=== PATIENT | male | born 1940 | race Caucasian/White ===

== ENCOUNTER 2020-01-20 09:22 | Inpatient (IN) | payer MEDICARE ==
[~2020-01-20] VITALS: Ht 175.3 cm; Wt 66.8 kg
--- NOTE | 2020-01-20 09:22 | NUR ---
PT TO ROOM VIA EMS STRETCHER FOR BEDSIDE TRIAGE
--- NOTE | 2020-01-20 09:40 | NUR ---
WOFE AT BEDSIDE INFO OBTAINED FROM HER PT HAS HISTROY OF DEMENTIA, MOIST COUGH NOTED, PRODUCTIVE OF THIN WHITE SPUTUM, AWARE OF PLAN TO STAY FOR OBSERVATION, NO NEW COMPLAINTS OPFFERED, PT AWARE OF NEED FOR URINE SPECIMEN
[2020-01-20 09:54] LABS: HEMATOCRIT 33.4 % (39.0-50.0); HEMOGLOBIN 10.9 g/dl (14.0-18.0); IMMATURE GRANULOCYTES 0.4 % (0.0-5.0); MEAN CELL VOLUME 91.5 fL CALC (80.0-100.0); MEAN CORPUSCULAR HGB 29.9 pG CALC (26.0-32.0); MEAN CORPUSCULAR HGB CONC 32.6 g/dL CAL (32.0-36.0); NEUT# 9.48 thou/uL (1.82-7.42); RED BLOOD COUNT 3.65 mill/uL (4.70-6.10); RED CELL DISTRI WIDTH 13.2 % (11.5-15.5)
[2020-01-20] MEDS ORDERED: TRELEGY ELLIPTA1 AER IN (10:18)
[2020-01-20] MEDS ORDERED: XARELTO20 MG PO (10:19)
[2020-01-20] MEDS ORDERED: VERAPAMIL120 M1 PO (10:20)
[2020-01-20] MEDS ORDERED: MONTELUKAST SOD10 MG PO (10:21)
[2020-01-20] MEDS ORDERED: FERR SULFATE325 MG PO (10:21)
[2020-01-20] MEDS ORDERED: MULTI VIT PO (10:21)
[2020-01-20 10:22] LABS: ALBUMIN 3.7 g/dL (3.2-5.0); ALKALINE PHOSPHATASE 74 u/l (38-126); ANION GAP 12 (6-22 (CALC)); BILIRUBIN, TOTAL 0.6 mg/dL (0.0-1.4); BUN 14 mg/dL (8-23); BUN/CREATININE RATIO 16 (12-20 (CALC)); CARBON DIOXIDE 23 mmol/l (22-30); CHLORIDE 98 mmol/l (95-108); CREATININE 0.8 mg/dL (0.7-1.3); GFR > 60 ML/MIN (>=60 (CALC)); GFR FOR AFR.AMER. > 60 ML/MIN (>=60 (CALC)); LIPASE 80 u/l (23-300); MAGNESIUM 1.8 mg/dL (1.6-2.3); SGOT/AST 33 u/l (19-48); SODIUM 129 mmol/l (137-146)
[2020-01-20] MEDS ORDERED: CALCIUM + D PO (10:22)
[2020-01-20] MEDS ORDERED: VALSARTAN160 MG PO (10:23)
[2020-01-20] MEDS ORDERED: MULTAQ400 MG PO (10:23)
[2020-01-20] MEDS ORDERED: ARAVA20 MG PO (10:24)
[2020-01-20 10:25] LABS: INTERNATIONAL NORMALIZED RATIO 1.2 RATIO (0.7-1.3); PROTHROMBIN TIME 12.2 SECONDS (9.0-12.5)
[2020-01-20] MEDS ORDERED: ALBUTEROL108 MCG/AC IN (10:25)
[2020-01-20] MEDS ORDERED: VENTOLIN H108 MCG/AC IN (10:26)
--- NOTE | 2020-01-20 10:29 | NUR ---
PT UNABLE TO VOID PRIOR TO GOING TO CT WILL ST CATH UPONE RETURN NOTIFIED
--- NOTE | 2020-01-20 11:00 | NUR ---
RECIEVED CARE OF PATIENT. PT RESTING ON STRETCHER. AT BEDSIDE. ORIENTED TO SELF. REPORTS PT FEBRILE AND WEAK THIS MORNING. PATENT IV IN PLACE
[2020-01-20 11:22] LABS: URINE BILIRUBIN - DIPSTICK NEGATIVE (NEGATIVE); URINE BLOOD DIPSTICK NEGATIVE (NEGATIVE); URINE COLOR YELLOW; URINE GLUCOSE - DIPSTICK NEGATIVE (NEGATIVE); URINE KETONE NEGATIVE (NEGATIVE); URINE NITRITE - DIPSTICK NEGATIVE (Negative); URINE PROTEIN - DIPSTICK NEGATIVE (NEG-TRACE); URINE SPECIFIC GRAVITY 1.015; URINE UROBILINOGEN - DIPSTICK 0.2 E.U./dL (0.2)
[2020-01-20 11:24] LABS: URINE LEUK ESTERASE LARGE (NEGATIVE)
[2020-01-20 11:35] LABS: URINE BACTERIA FEW hpf; URINE WBC 20-50 WBC/hpf (0-5)
--- NOTE | 2020-01-20 12:00 | NUR ---
PT AWAITING ADMISSION. ANTIBIOTICS INFUSING
--- NOTE | 2020-01-20 12:34 | NUR ---
MED SURG UNABLE TO TAKE REPORT AT THIS TIME
--- NOTE | 2020-01-20 13:04 | NUR ---
REPORT GIVEN TO MATHEW MCKEONSALES FLOOR ASSOCIATE
--- NOTE | 2020-01-20 13:13 | NUR ---
REPORT RECIEVED FROM LINDA COREAS. PT ARRIVED PT [facility] ROOM 271 VIA STRETCHER ACCOMPAINED BY LINDA COREAS AND . PT TRANSFERED FROM STRETCHER TO BED WITH LITTLE DIFFICULTY. INTRODUCED SELF TO PT AND DISCUSSED POC. ASSESSMENT AND VITALS COMPLETED AT THIS TIME. RESPIRATIONS ARE EVEN AND UNLABORED. LUNG SOUNDS ARE CLEAR. HEART RHYTHM IS NORMAL WITH TELE IN PLACE. RADIAL AND PEDAL PULSES ARE STRONG WITH NORMAL CAPILLARY REFILL. EMS #20G IN LFA FINISHING WITH VANCO AT 125ML ORDERED. SITE APPEARS HEALTHY AND PATENT. NS TO BE STARTED ONCE VANCO FINISHED. SKIN IS WARM/ DRY WITH NO BREAKDOWN OR REDNESS.PT IS A/O BUT NEED REORIENTING AT TIMES. IS GOOD HISTORIAN. INFORMED WRITTER THAT" HE IS A FALL RISK AND TRYING TO GET OUT OF BED AT NIGHT". FALL RISK/ALLERGY BAND APPLIED AND BED ALARM ACTIVATED WITH AT BEDSIDE.PT PRESENTS WITH PAIN PUMP ON LEFT FLANK AREA, STATES "ITS NOT CHARGED RIGHT NOW BECAUSE I DONT HAVE THE OB TECH. IT HASNT BEEN WORKING SINCE JULY." PT DENIES ANY PAIN OR DISCOMFORTS AT THIS TIME. PT ORIENTED TO ROOM AND CALL LIGHT SYSTEM. ALL SAFTEY PRECAUTIONS ARE IN PLACE WITH CALL LIGHT IN REACH. WILL CONTINUE TO MONITOR.
--- NOTE | 2020-01-20 13:15 | NUR ---
PT TRANSPORTED VIA STRETCHER TELE IN PLACE TO [facility]
--- NOTE | 2020-01-20 13:40 | NUR ---
KARL INFORMED OF HOME MEDICATIONS; TRELLEGY AND MULTAQ THAT NEEDED TO BE BROUGHT INTO HOSPITAL. VERBALIZED UNDERSTANDING. STATED "I WILL HAVE THEM IN THE MORNING".
[2020-01-20 13:41] VITALS: BP 131/60
[2020-01-20 15:25] VITALS: BP 134/66
--- NOTE | 2020-01-20 16:00 | NUR ---
PT SLEEPING IN LOW FOWLERS POSTIION WITH AT BEDSIDE. RESPIRATIONS ARE EVEN AND UNLABORED WITH NO SIGNS OF DISTRESS NOTED. IV FLUIDS RUNNING AT 100 ML PER ORDER. ALL SAFETY PRECAUTIONS RE-ENFORCED WITH CALL LIGHT AND BED ALARM ACTIVATED. WILL CONTINUE TO MONITOR
[2020-01-20 19:00] VITALS: BP 142/77
--- NOTE | 2020-01-20 19:00 | NUR ---
REPORT RECEIVED FROM JOSE CARMONA. PT RESTING IN BED, NO S/S OF DISTRESS AT THIS TIME. WILL CONTINUE TO MONITOR.
--- NOTE | 2020-01-20 21:10 | NUR ---
PT RESTING IN BED, WITH EYES CLOSED. RESPIRATIONS EVEN AND UNLABORED ON RA. LUNGS SOUND COARSE/DIMINISHED. PEDAL PULSES ARE WEAK. SAFETY PRECAUTIONS IN PLACE. WILL CONTINUE TO MONITOR.
--- NOTE | 2020-01-20 21:12 | NUR ---
PT FAMILY CALLED TO SEE IF THEY COULD BRING IN PT PM MEDICATION. FAMILY AGREED TO BRING IN MEDICATION
[2020-01-21] VITALS (7 sets, daily range): BP systolic 116–149; BP diastolic 59–74
--- NOTE | 2020-01-21 00:11 | NUR ---
PT RESTING IN BED, NO S/S OF DISTRESS AT THIS TIME. SAFETY PRECAUTIONS IN PLACE. WILL CONTINUE TO MONITOR.
--- NOTE | 2020-01-21 04:06 | NUR ---
PT RESTING IN BED, NO S/S OF DISTRESS AT THIS TIME. SAFETY PRECAUTIONS IN PLACE. WILL CONTINUE TO MONITOR.
[2020-01-21 05:29] LABS: HEMATOCRIT 30.5 % (39.0-50.0); HEMOGLOBIN 9.7 g/dl (14.0-18.0); IMMATURE GRANULOCYTES 0.7 % (0.0-5.0); MEAN CELL VOLUME 93.6 fL CALC (80.0-100.0); MEAN CORPUSCULAR HGB 29.8 pG CALC (26.0-32.0); MEAN CORPUSCULAR HGB CONC 31.8 g/dL CAL (32.0-36.0); NEUT# 7.68 thou/uL (1.82-7.42); RED BLOOD COUNT 3.26 mill/uL (4.70-6.10); RED CELL DISTRI WIDTH 13.4 % (11.5-15.5)
[2020-01-21 05:51] LABS: ALBUMIN 3.1 g/dL (3.2-5.0); ALKALINE PHOSPHATASE 68 u/l (38-126); ANION GAP 12 (6-22 (CALC)); BUN 12 mg/dL (8-23); BUN/CREATININE RATIO 18 (12-20 (CALC)); CARBON DIOXIDE 23 mmol/l (22-30); CHLORIDE 100 mmol/l (95-108); CREATININE 0.7 mg/dL (0.7-1.3); GFR > 60 ML/MIN (>=60 (CALC)); GFR FOR AFR.AMER. > 60 ML/MIN (>=60 (CALC)); POTASSIUM 4.2 mmol/l (3.5-5.1); SGOT/AST 22 u/l (19-48); SODIUM 131 mmol/l (137-146); TOTAL PROTEIN 5.8 g/dL (6.3-8.2)
[2020-01-21 05:54] LABS: BILIRUBIN, TOTAL 0.3 mg/dL (0.0-1.4)
--- NOTE | 2020-01-21 09:30 | NUR ---
PT SEEN AWAKE, ALERT, ORIENTED TO SELF. LUNGS CLEAR, RA. IS AT BEDSIDE. PT ABLE TO ANSWER QUESTIONS, ANSWERS NOT RELIABLE PER DEMENTIA. LUNGS CLEAR, RA. PT INCONTINENT OF URINE. PT SEEN BY DR MÉNDEZ THIS MORNING, WILL CONTINUE IN HOSPITAL FOR IV ABX PER UTI.
--- NOTE | 2020-01-21 11:09 | NUR ---
PT AT BEDSIDE.
--- NOTE | 2020-01-21 14:41 | NUR ---
ROCEPHIN INFUSING AT THIS TIME; IV SITE APPEARS HEALTHY. REMAINS AT BEDSIDE. PT DENIES PAIN CURRENTLY. RESPIRATIONS EVEN AND UNLABORED ON ROOM AIR. NO REQUESTS OR CONCERNS. CALL LIGHT WITHIN REACH.
--- NOTE | 2020-01-21 17:10 | NUR ---
TYLENOL GIVEN FOR HEADACHE. COOL CLOTH APPLIED TO FOREHEAD.
--- NOTE | 2020-01-21 18:26 | NUR ---
ALARM SOUNDED AND PT WITH LEGS OUT OF THE BED ATTEMPTING TO GET UP TO VOID; TRYING TO HELP HIM. ASSISTED WITH URINAL; INCONTINENT OF SOME DUE TO URGENCY. REPOSITIONED UP IN BED. BED ALARM ON AGAIN. NO OTHER NEEDS. REPORTS THAT TYLENOL WAS EFFECTIVE FOR HEADACHE.
--- NOTE | 2020-01-21 20:17 | NUR ---
PT LAYING IN BED. A&O TO SELF AND PLACE. ORIENTED PT TO CURRENT MONTH. PT DENIES ANY PAIN AT THIS TIME. BED SET IN LOWEST POSITION WITH BED ALARM IN PLACE FOR SAFETY PRECAUTIONS. NO OTHER NEEDS AT THIS TIME. ASSESSMENT COMPLETED. DISCUSSED POC. CALL LIGHT IN REACH. CONTINUE TO MONITOR.
--- NOTE | 2020-01-21 23:40 | NUR ---
PT IN BED WATCHING TV. NO DISTRESS OR NEEDS AT THIS TIME. CALL LIGHT IN REACH. CONTINUE TO MONITOR.
[2020-01-22 04:05] VITALS: BP 137/86
--- NOTE | 2020-01-22 04:30 | NUR ---
PT LAYING IN BED. NO NEEDS AT THIS TIME. NEW IV INITIATED, #20 RFA WITH 0.45% NS AT 100 ML/HR. CALL LIGHT IN REACH. CONTINUE TO MONITOR.
[2020-01-22 05:47] LABS: HEMOGLOBIN 9.7 g/dl (14.0-18.0); MEAN CELL VOLUME 92.9 fL CALC (80.0-100.0); MEAN CORPUSCULAR HGB CONC 32.3 g/dL CAL (32.0-36.0); RED BLOOD COUNT 3.23 mill/uL (4.70-6.10); RED CELL DISTRI WIDTH 13.5 % (11.5-15.5)
[2020-01-22 06:07] LABS: ANION GAP 10 (6-22 (CALC)); BUN 11 mg/dL (8-23); BUN/CREATININE RATIO 15 (12-20 (CALC)); CARBON DIOXIDE 25 mmol/l (22-30); CHLORIDE 100 mmol/l (95-108); CREATININE 0.7 mg/dL (0.7-1.3); GFR > 60 ML/MIN (>=60 (CALC)); GFR FOR AFR.AMER. > 60 ML/MIN (>=60 (CALC)); MAGNESIUM 1.8 mg/dL (1.6-2.3); POTASSIUM 3.8 mmol/l (3.5-5.1); SODIUM 131 mmol/l (137-146)
[2020-01-22 07:15] VITALS: BP 141/68
--- NOTE | 2020-01-22 07:16 | NUR ---
REPORT RECEIVED FROM LINDA ESCAMILLA. PT RESTING IN BED SEMI FOWLERS; ALERT AND ORIENTED X [address]; PT ABLE TO TELL HE IS IN THE HOSPITAL BUT UNABLE TO SAY WHICH HOSPITAL; REPORTS YEAR AT 2000. DENIES PAIN. RESPIRATIONS EVEN AND UNLABORED ON ROOM AIR. IV FLUIDS INFUSING WITHOUT DIFFICULTY; IV SITE APPEARS HEATLHY. TELE ON. LUNGS ARE CLEAR; LOOSE NON PRODUCTIVE COUGH. SAFETY MEASURES IN PLACE INCLUDING BED ALARM. CALL LIGHT WITHIN REACH.
--- NOTE | 2020-01-22 08:00 | NUR ---
DR. MÉNDEZ AT BEDSIDE.
--- NOTE | 2020-01-22 09:25 | NUR ---
CALLED DR. KAUR AT [phone] SPOKE TO GARDENIA GAVE INFORMATION REGARDING THIS PT. STATED SHE WILL LET HIM KNOW ABOUT THE CONSULTATION.
--- NOTE | 2020-01-22 09:33 | NUR ---
FIRST DOSE OF VANCO INFUSING NOW; AT BEDSIDE.
--- NOTE | 2020-01-22 09:34 | NUR ---
DID CONSULTATION ON THE TELE PAD FOR DR. DAHL.
[2020-01-22 10:30] VITALS: BP 105/61
--- NOTE | 2020-01-22 11:29 | NUR ---
UP TO BATHROOM FOR BOWEL MOVEMENT; BOWEL INCONTINENCE ON THE WAY TO THE BATHROOM. HYGIENE PROVIDED.
--- NOTE | 2020-01-22 11:43 | NUR ---
DR. DAHL AT VIRTUAL BEDSIDE FOR ID CONSULT.
--- NOTE | 2020-01-22 13:53 | NUR ---
S: JOE ACUÑA is a 79 M who presents with urinary tract infection (UTI). He has a history of hypertension and COPD. All medications in patient's chart were reviewed. O: VS: BP 105/61 mmHg, P 75 bpm, RR 18 breaths/minute, T 97.7 F W 66.791 kg, HT 175.26 cm, Scr= 1 mg/dL, CrCl= 54.7 ml/min A: Blood culture shows no growth. Urine culture shows Enterococcus Faecalis sensitive to vancomycin. P: Vancomycin ordered for pharmacy to dose. Start Vancomycin 750 mg IV Q12H. Vancomycin trough is drawn before the 4th dose on 01/23/20202029. Vancomycin goal trough is between 10-20 mcg/ml. Pharmacy will follow and or advise on antibiotics use as needed.
--- NOTE | 2020-01-22 14:15 | NUR ---
PT AT BEDSIDE.
--- NOTE | 2020-01-22 14:40 | NUR ---
DR. KAUR AT BEDSIDE FOR EVAL. VERBAL ORDER TO OBTAIN PVR WITH BLADDER SCANNER AND NOTIFY HIM OF RETENTION GREATER THAN 300 ML.
[2020-01-22 15:00] VITALS: BP 105/66
--- NOTE | 2020-01-22 15:17 | NUR ---
Pt. found resting in bed, his spouse was in room and was able to wake him up. Pt. able to state his name and when questioned. He is in agreement to participate in physical therapy. Supine to side ly with min. assist x 1 to initiate turning onto side. Pt. then able to use railing to come to sitting and sat at EOB without LOB. Sit to stand to walker with min. assist x 1. Pt. ambulated 2 x 30 feet using walker with CGA x 1. V.c.'s and demonstration provided for how to use walker, how to negotiate around bed, normal gait pattern and breathing technique. Upon returning to bedside pt. able to perform sitting lateral scooting and with mod. assist x 1 pt. able to ly on his back. Max assist x 2 required for positioning higher in bed. HOB elevated and call light left within reach. Pt. was left resting comfortably in bed with spouse present and physician. Pt. without questions/concerns. AMPAC score 11. Attending nurse informed of patient participation in physical therapy.
--- NOTE | 2020-01-22 15:20 | NUR ---
PVR 455 ML WITH BLADDER SCANNER. NOTIFIED. NEW ORDER FOR DANIELS CATHETER PLACEMENT; DC PT WITH DANIELS AND DR. KAUR STATES HE WILL REMOVE IN OFFICE. PATIENT AND UPDATED.
--- NOTE | 2020-01-22 15:40 | NUR ---
16F DANIELS PLACED; PT TOLERATED WELL. IMMEDIATE RETURN OF CLEAR, PALE YELLOW URINE.
--- NOTE | 2020-01-22 18:39 | NUR ---
RESTING IN BED SEMI FOWLERS WITH EYES CLOSED AND NO SIGNS OF DISTRESS. DANIELS DRIANING CLEAR YELLOW URINE IN ADEQUATE AMOUNTS. CALL LIGHT WTIHIN REACH.
[2020-01-22 19:05] VITALS: BP 134/76
--- NOTE | 2020-01-22 19:22 | NUR ---
PT LAYING IN BED. A& TO SELF AND PLACE. REORIENTED PT TO CURRENT DATE/YEAR. PT DENIES ANY PAIN AT THIS TIME. MOIST COUGH HEARD ALONG WITH COARSE BREATH SOUNDS UPON AUSCULTATION. DANIELS CATHETER IN PLACE DRAINING VIA GRAVITY WITH CLEAR YELLOW URINE NOTED. ASSESSMENT COMPLETED. DISCUSSED POC. BED ALARM IN PLACE FOR SAFETY PRECAUTIONS. CALL LIGHT IN REACH. CONTINUE TO MONITOR.
--- NOTE | 2020-01-22 22:50 | NUR ---
UPON ENTERING ROOM, PT REMOVED IV AND ATTEMPTED TO REMOVE ID BRACELETS. REORIENTED PT. WILL REINSERT NEW IV.
--- NOTE | 2020-01-22 23:15 | NUR ---
NEW IV #22 INITIATED BY BABAK MCKEON
[2020-01-22 23:41] VITALS: BP 128/68
[2020-01-23 03:57] VITALS: BP 124/74
--- NOTE | 2020-01-23 04:02 | NUR ---
PT SLEEPING IN BED. RESP EVEN AND UNLABORED. CONTINUE TO MONITOR
[2020-01-23 07:58] VITALS: BP 144/79
--- NOTE | 2020-01-23 07:58 | NUR ---
RECIEVED REPORT FROM WILDA RN. PT RESTING IN SEMI FOWLERS POSTIION EATING BREAKFAST WITH AT BEDSIDE UPON ENTERING ROOM. INTRODUCED SELF TO PT AND DISCUSSED POC. ASSESSMENT AND VITALS COMPLETED. RESPIRATIONS ARE EVEN AND UNLABORED WITH NO SIGNS OF DISTRESS. WHEEZING UPON AUSCULTATING, PT DENEIS ANY SOB. HEART RHYTHM IS NORMAL WITH TELE IN PLACE. BOWEL SOUNDS ARE ACTIVE IN ALL QUADRANTS,LAST REPORTED BM 01/22/20. RADIAL AND PEDAL PULSES ARE STRONG WITH NORMAL CAPILLARY REFILL. #22 IN RFA RUNNING WITH 0.45 NS PER ORDERED, SITE APPEARS HEALTHY AND PATENT. DANIELS CATHATER IN PLACE. 350ML OF CLEAR YELLOW URINE EMPTIED. PT PRESENTED WITH NON PRODUCTIVE COUGH STATING "TRACY HAD IT FOR YEARS." PT DENIES ANY PAIN OR DISCOMFORTS AT THIS TIME. ALL SAFETY PRECAUTIONS IN PLACE WITH CALL LIGTH AND BED ALARM ACTIVATED. WILL CONTINUE TO MONITOR.
[2020-01-23 10:30] VITALS: BP 102/61
--- NOTE | 2020-01-23 11:24 | NUR ---
PT SLEEPING IN SEMI FOWLERS POSITION UPON ENTERING ROOM. RESPIRATIONS ARE EVEN AND UNLABORED. NO DISTESS NOTED. ASSESSMENT REMIANS THE SAME. PT DENIES ANY PAIN OR DISCOMFORTS AT THIS TIME.IV FLUIDS RUNNING WITH EASE PER ORDER. ALL SAFTEY PRECAUTIONS ENFORCED WITH CALL LIGHT IN REACH AND BED ALARM ACTIVATED. AT BEDSIDE. WILL CONTINUE TO MONITOR
[2020-01-23 15:00] VITALS: BP 114/74
--- NOTE | 2020-01-23 15:49 | NUR ---
PT SLEEPING IN SEMI FOWLERS POSITION WITH AT BEDSIDE. RESPIRATIONS ARE EVEN AND UNLABROED WITH NO SIGNS OF DISTRESS NOTED. DANIELS CATHATER IN PLACE WITH TUBING UNKINKED AND FLOWING WITH GRAVITY. IV FLUIDS RUNNING PER ORDER. NO SIGNS OF ANY PAIN OR DISCOMFORTS. ALL SFATEY PRECAUTIONS ARE IN PLACE WITH CALL LIGHT IN REACH.WILL CONTINUE TO MONITOR
[2020-01-23 18:55] VITALS: BP 126/69
--- NOTE | 2020-01-23 19:30 | NUR ---
PT AWAKE RESTING IN BED. VSS. RESP EVEN AND UNLABORED. LUNGS CLEAR BILAT WITH DIMINISHED BREATH SOUNDS. ABD SOFT AND NONDISTENDED WITH BOWEL SOUNDS PRESENT. NO LOWER EXT EDEMA NOTED. PEDAL PULSES PALPATED BILAT. DANIELS IS PATENT DRAINING YELLOW URINE WITH SLIGHT SEDIMENT NOTED. IV SITE PATENT IN RT FOREARM. NSS AT 10CC/HR. TELE AFIB HR CONTROLLED. PT OFFERS NO COMPLAINTS. BED ALARM IS ON . FREQUENT ROUNDS MADE. CALL SABILLON WITHIN REACH.
[2020-01-24 00:01] VITALS: BP 123/77
[2020-01-24 03:40] VITALS: BP 129/77
--- NOTE | 2020-01-24 04:18 | NUR ---
PT RESTING IN BED WITH EYES CLOSED. RESP EVEN AND UNLABORED. ASSESSMENT UNCHANGED. IV SITE PATENT. TELE AFIB HR CONTROLLED. FRANCES IS PATENT. BED ALARM IS ON. FREQUENT ROUNDS MADE. CALL SABILLON WITHIN REACH.
[2020-01-24 05:58] LABS: HEMATOCRIT 31.7 % (39.0-50.0); IMMATURE GRANULOCYTES 0.3 % (0.0-5.0); MEAN CELL VOLUME 93.8 fL CALC (80.0-100.0); MEAN CORPUSCULAR HGB 29.6 pG CALC (26.0-32.0); MEAN CORPUSCULAR HGB CONC 31.5 g/dL CAL (32.0-36.0); NEUT# 3.54 thou/uL (1.82-7.42); RED BLOOD COUNT 3.38 mill/uL (4.70-6.10); RED CELL DISTRI WIDTH 13.7 % (11.5-15.5)
[2020-01-24 06:23] LABS: ANION GAP 11 (6-22 (CALC)); BUN 9 mg/dL (8-23); BUN/CREATININE RATIO 12 (12-20 (CALC)); CARBON DIOXIDE 27 mmol/l (22-30); CHLORIDE 99 mmol/l (95-108); CREATININE 0.7 mg/dL (0.7-1.3); GFR > 60 ML/MIN (>=60 (CALC)); GFR FOR AFR.AMER. > 60 ML/MIN (>=60 (CALC)); POTASSIUM 3.7 mmol/l (3.5-5.1); SODIUM 132 mmol/l (137-146)
[2020-01-24 08:05] VITALS: BP 117/69
--- NOTE | 2020-01-24 08:50 | NUR ---
ASSESSMENT DONE. PT IS RESTING IN BED WITH NO S/S OF DISTRESS NOTED. IN ROOM. PT DENIES PAIN AT THIS TIME. TELE IN PLACE. DANIELS IS PATENT WITH YELLOW URINE. PT IS A&O X2. PT DENIES ANY NEEDS AT THIS TIME. SAFETY PRECAUTIONS REINFORCED AND CALL LIGHT IN REACH.
[2020-01-24 10:59] VITALS: BP 112/67
--- NOTE | 2020-01-24 12:37 | NUR ---
PT IS RESTING IN ROOM WITH NO S/S OF DISTRESS NOTED. PT DENIES ANY NEEDS AT THIS TIME. IN ROOM. CALL LIGHT IN REACH.
[2020-01-24 15:15] VITALS: BP 112/74
--- NOTE | 2020-01-24 16:16 | NUR ---
PT IS RESTING IN BED WITH NO S/S OF DISTRESS NOTED. PRUNE JUICE PROVIDED. IN ROOM. PT DENIES ANY NEEDS AT THIS TIME. CALL LIGHT IN REACH.
[2020-01-24 19:00] VITALS: BP 123/71
--- NOTE | 2020-01-24 20:40 | NUR ---
PT BOOSTED IN BED. ASSESSMENT COMPLETED AT THIS TIME. PT DENIES ANY NEEDS. DANIELS DRAINING TO GRAVITY CLEAR YELLOW URINE. PT DENIES BURNING OR IRRITATION AT INSERTION SITE. SKIN APPEARS HEALTHY. CALL LIGHT AT SIDE.
[2020-01-25] VITALS: BP 117/71
--- NOTE | 2020-01-25 01:00 | NUR ---
PT AWAKE, REPORTS NOT BEING ABLE TO SLEEP. DENIES ANYTHING FOR COMFORT TO ASSIST. URINAL EMPTIED 200CC OF CLEAR YELLOW URINE.
--- NOTE | 2020-01-25 01:05 | NUR ---
PT AWAKE UPRIGHT IN BED. NO S/O DISTRESS NOTED. PT DENIES ANY NEEDS, BUT DID REQUEST A CUP OF COFFEE/PROVIDED AT THIS TIME AND I ENCOURAGED HIM TO CALL NEEDS ARISE.
--- NOTE | 2020-01-25 03:59 | NUR ---
PT WATCHING TV UPRIGHT IN BED. NO S/O DISTRESS NOTED. DENIES ANY NEEDS.
[2020-01-25 04:00] VITALS: BP 123/75
[2020-01-25 07:56] VITALS: BP 127/83
--- NOTE | 2020-01-25 10:23 | NUR ---
PT SEEN OOB IN CHAIR AT BEDSIDE, VISITING. PT WITH LUNGS CLEAR, RA. DANIELS CATHETER IN PLACE, DRAINS CLEAR YELLOW URINE. PT SHOWERED THIS AM. PT SEEN BY DR MÉNDEZ THIS AM, HOPEFUL FOR DISCHARGE TO HOME TODAY.
--- NOTE | 2020-01-25 10:32 | NUR ---
PATIENT IS SITTING ON RECLINER AND ASLEEP. PATIENT'S WOKE HIM UP AND HE AGREED TO DO EXERCISES WHEN ASKED. PATIENT PEFORMED KNEE RAISES, KNEE EXTENSION, KNEE FLEXION, HIP ABDUCTION, ANKLE PF-DF X 20 REPS X 1 SET ON EACH LE AND EXERCISES. PATIENT PERFORMED STS X 3, MIN-A AND VERBAL CUES ON PROPER AND SAFE SEQUENCING. SUPPORTED STATIC STANDING BALANCE AND TOLERANCE USING WALKER, VERBAL AND TACTILE CUES ON PROPER BODY POSTURE AND RADHA PATIENT HAS RETROPULSIVE POSTURE WHICH INCREASES RISK OF FALLING BACKWARD. PATIENT REQUIRED MIN-A/CGA TO MAINTAIN BALANCE IN MIDLINE AND TOLERATED ~3 MINS. PATIENT WAS ENCOURAGED BY PT TO PERFORM EXERCISES DAILY AND STAND EVERY 30 MINS TO 1 HOUR TO PREVENT PRESSURE SORES, FURTHER WEAKNESS AND MUSCLE TIGHTNESS AND TO PROMOTE/IMPROVE JOINT AND TRUNK STABILITY. AMPAC = 14
[2020-01-25 11:09] VITALS: BP 99/70
[2020-01-25] MEDS ORDERED: AMOXICILLIN500 M2 PO (12:27)
--- NOTE | 2020-01-25 14:23 | NUR ---
PT AND VERBALIZE UNDERSTANDING OF DC INSTRUCTIONS, PT TAKEN TO VEHICLE BY WHEELCHAIR. PT LEAVES [facility] IN STABLE CONDITION.
== END 2020-01-25 14:18 | disposition home health service (06) | DRG 690 ==
LOC: ED 09:22 → ED-I 11:20 → ED 11:49 → MS2 11:50
PROVIDERS: Family Medicine; Internal Medicine; Nurse Practitioner; ADMIT Internal Medicine; ATTEND Internal Medicine
PROC: 0T9B70Z Drainage of Bladder with Drainage Device, Via Natural or Artificial Opening (ICD-10-PCS; principal; 2020-01-22)
DX: N39.0 Urinary tract infection, site not specified (principal); I48.20 Chronic atrial fibrillation, unspecified; I10 Essential (primary) hypertension; J44.9 Chronic obstructive pulmonary disease, unspecified; I25.10 Atherosclerotic heart disease of native coronary artery without angina pectoris; F03.90 Unspecified dementia, unspecified severity, without behavioral disturbance, psychotic disturbance, mood disturbance, and anxiety; N40.1 Benign prostatic hyperplasia with lower urinary tract symptoms; N39.498 Other specified urinary incontinence; R39.15 Urgency of urination; R33.8 Other retention of urine; R35.0 Frequency of micturition; B95.2 Enterococcus as the cause of diseases classified elsewhere; Z91.81 History of falling; Z87.440 Personal history of urinary (tract) infections; Z87.891 Personal history of nicotine dependence; Z85.118 Personal history of other malignant neoplasm of bronchus and lung; Z90.2 Acquired absence of lung [part of]; Z96.82 Presence of neurostimulator; Z79.01 Long term (current) use of anticoagulants; Z20.828 Contact with and (suspected) exposure to other viral communicable diseases
CPT/HCPCS: G0378; J0692; J3370; Q3014

== ENCOUNTER 2020-07-07 14:05 | Emergency (ER) | payer MEDICARE ==
[~2020-07-07] VITALS: Ht 175.3 cm; Wt 65.9 kg
[~2020-07-07 14:05] MED LIST: ALBUTEROL108 MCG/AC IN; AMOXICILLIN500 M2 PO; ARAVA20 MG PO; CALCIUM + D PO; FERR SULFATE325 MG PO; MONTELUKAST SOD10 MG PO; MULTAQ400 MG PO; MULTI VIT PO; TRELEGY ELLIPTA1 AER IN; VALSARTAN160 MG PO; VENTOLIN H108 MCG/AC IN; VERAPAMIL120 M1 PO; XARELTO20 MG PO
[2020-07-07] MEDS ORDERED: TOPROL XL25 MG PO (14:42)
[2020-07-07 15:15] LABS: HEMATOCRIT 37.2 % (39.0-50.0); IMMATURE GRANULOCYTES 0.4 % (0.0-5.0); MEAN CELL VOLUME 91.4 fL CALC (80.0-100.0); MEAN CORPUSCULAR HGB 29.5 pG CALC (26.0-32.0); MEAN CORPUSCULAR HGB CONC 32.3 g/dL CAL (32.0-36.0); NEUT# 3.8 thou/uL (1.82-7.42); RED BLOOD COUNT 4.07 mill/uL (4.70-6.10); RED CELL DISTRI WIDTH 14.2 % (11.5-15.5)
[2020-07-07 15:31] LABS: ALKALINE PHOSPHATASE 92 u/l (38-126); ANION GAP 14 (6-22 (CALC)); BUN 16 mg/dL (8-23); BUN/CREATININE RATIO 19 (12-20 (CALC)); CARBON DIOXIDE 26 mmol/l (22-30); CHLORIDE 96 mmol/l (95-108); CREATININE 0.9 mg/dL (0.7-1.3); GFR > 60 ML/MIN (>=60 (CALC)); GFR FOR AFR.AMER. > 60 ML/MIN (>=60 (CALC)); POTASSIUM 3.8 mmol/l (3.5-5.1); SGOT/AST 28 u/l (19-48); SODIUM 132 mmol/l (137-146)
[2020-07-07 15:35] LABS: ALBUMIN 3.8 g/dL (3.2-5.0); BILIRUBIN, TOTAL 0.5 mg/dL (0.0-1.4); TOTAL PROTEIN 7.2 g/dL (6.3-8.2)
[2020-07-07 15:43] LABS: MYOGLOBIN 44 ng/mL (0 - 121)
[2020-07-07 16:18] LABS: URINE BILIRUBIN - DIPSTICK NEGATIVE (NEGATIVE); URINE BLOOD DIPSTICK TRACE-LYSED (NEGATIVE); URINE COLOR YELLOW; URINE GLUCOSE - DIPSTICK NEGATIVE (NEGATIVE); URINE KETONE NEGATIVE (NEGATIVE); URINE NITRITE - DIPSTICK NEGATIVE (Negative); URINE PROTEIN - DIPSTICK TRACE mg/dL (NEG-TRACE); URINE SPECIFIC GRAVITY 1.015; URINE UROBILINOGEN - DIPSTICK 0.2 E.U./dL (0.2)
[2020-07-07 16:23] LABS: URINE LEUK ESTERASE MODERATE (NEGATIVE)
[2020-07-07 16:34] LABS: URINE RBC 0-2 RBC/hpf (0-5)
[2020-07-07] MEDS ORDERED: KEFLEX500 M1 PO (16:44)
[2020-07-07 16:52] VITALS: BP 145/69
== END 2020-07-07 17:24 | disposition home or self-care (01) ==
LOC: ED 14:05
PROVIDERS: Emergency Medicine
DX: N39.0 Urinary tract infection, site not specified (principal); I10 Essential (primary) hypertension; J44.9 Chronic obstructive pulmonary disease, unspecified; I48.91 Unspecified atrial fibrillation; Z20.822 Contact with and (suspected) exposure to COVID-19

== ENCOUNTER 2020-09-21 20:02 | Observation (INO) | payer MEDICARE, MEDICAID ==
[~2020-09-21] VITALS: Ht 175.3 cm; Wt 58.0 kg
[~2020-09-21 20:02] MED LIST changes: +KEFLEX500 M1 PO; +TOPROL XL25 MG PO
--- NOTE | 2020-09-21 20:20 | NUR ---
IN ROOM WHEELCHAIR, STAND PIVOT ONLY, VERY WEAK
[2020-09-21 20:39] LABS: IMMATURE GRANULOCYTES 0.5 % (0.0-5.0); MEAN CELL VOLUME 91.3 fL CALC (80.0-100.0); MEAN CORPUSCULAR HGB 30.4 pG CALC (26.0-32.0); MEAN CORPUSCULAR HGB CONC 33.3 g/dL CAL (32.0-36.0); NEUT# 4.69 thou/uL (1.82-7.42); RED BLOOD COUNT 3.12 mill/uL (4.70-6.10); RED CELL DISTRI WIDTH 14.5 % (11.5-15.5)
[2020-09-21 20:45] LABS: HEMATOCRIT 28.5 % (39.0-50.0); HEMOGLOBIN 9.5 g/dl (14.0-18.0)
[2020-09-21 20:52] LABS: ALBUMIN 3.7 g/dL (3.2-5.0); BILIRUBIN, TOTAL 0.6 mg/dL (0.0-1.4); BUN 19 mg/dL (8-23); BUN/CREATININE RATIO 25 (12-20 (CALC)); CARBON DIOXIDE 24 mmol/l (22-30); CHLORIDE 92 mmol/l (95-108); CREATININE 0.8 mg/dL (0.7-1.3); GFR > 60 ML/MIN (>=60 (CALC)); GFR FOR AFR.AMER. > 60 ML/MIN (>=60 (CALC)); POTASSIUM 3.8 mmol/l (3.5-5.1); SGOT/AST 39 u/l (19-48)
[2020-09-21 20:54] LABS: ALKALINE PHOSPHATASE 149 u/l (38-126); ANION GAP 13 (6-22 (CALC)); SODIUM 125 mmol/l (137-146)
--- NOTE | 2020-09-21 21:47 | NUR ---
ASLEEP W/P/D SKIN OCC CONGESTED COUGH MATH PROFESSOR NO DYSPNEA CONTINUOUS AT BEDSIDE
--- NOTE | 2020-09-21 22:54 | NUR ---
NO COUGH NO CONGESTION SR NO ST T CHANGES NO ECTOPY.NO DYSPNEA OR SOB S/S
--- NOTE | 2020-09-21 23:23 | NUR ---
PT VOIDS 100CC YELLOW URINE AT REQUEST OF SPOUSE SPEC TO LAB
[2020-09-21 23:30] LABS: URINE BILIRUBIN - DIPSTICK NEGATIVE (NEGATIVE); URINE COLOR YELLOW; URINE GLUCOSE - DIPSTICK NEGATIVE (NEGATIVE); URINE KETONE NEGATIVE (NEGATIVE); URINE PROTEIN - DIPSTICK NEGATIVE (NEG-TRACE); URINE UROBILINOGEN - DIPSTICK 0.2 E.U./dL (0.2)
[2020-09-21 23:31] LABS: URINE LEUK ESTERASE MODERATE (NEGATIVE); URINE NITRITE - DIPSTICK POSITIVE (Negative)
[2020-09-21 23:36] LABS: URINE BLOOD DIPSTICK NEGATIVE (NEGATIVE); URINE EPITHELIAL CELLS MODERATE EPI/hpf (0-FEW); URINE WBC 50-100 WBC/hpf (0-5)
[2020-09-21 23:37] LABS: URINE BACTERIA MANY hpf
--- NOTE | 2020-09-22 00:40 | NUR ---
W/P/D SKIN SR NO CT T CHANGES NO ECTOPY OCC CONGESTED ASSISTANT LOAN PROCESSOR COUGH NO SOB/DYSPNEA
--- NOTE | 2020-09-22 01:20 | NUR ---
PHONE REPORT TO NURSE TONO
--- NOTE | 2020-09-22 01:25 | NUR ---
PT TRANSFERRED TO [facility] RM 270 IN STABLE CONDITION ASSISTED PT TO STAND WALK AND SIT PT TOLERATED WELL
[2020-09-22 01:26] VITALS: BP 150/82
--- NOTE | 2020-09-22 01:26 | NUR ---
PT ARRIVES TO UNIT AT 0126 VIA STRETCHER ACCOMPANIED BY SEN RN. ADMITTED TO ROOM 270.
[2020-09-22 04:00] VITALS: BP 148/80
--- NOTE | 2020-09-22 07:05 | NUR ---
PATIENT LAYING IN BED AT THIS TIME PATIENT ABLE TO TELL ME NAME AND PLACE BUT WAS CONFUSED ON MONTH. TIRE SORTER DONE AT THIS TIME. LUNG ANGEL CLEAR EXECPT LEFT LOWER LUNG FIELD SLIGHTLY DIMINISHED. PATIENT HAS REPORTED PAST HISTORY OF LEFT LOWER LUNGECTOMY. NO EVIDENCE OF UPPER OR LOWER LIMB SWELLING AT THIS TIME. PATIENT STATED WHEN ASKE IF HE HAS ANY PAIN HE STATED "NO". SIDERAILS ARE UP X 2 CALL LIGHT AND PERSONAL BELONGING ARE WITHIN REACH.
[2020-09-22 07:20] VITALS: BP 134/77
--- NOTE | 2020-09-22 07:24 | NUR ---
PT screen No needs are identified at this time
[2020-09-22 10:41] VITALS: BP 134/82
--- NOTE | 2020-09-22 11:36 | NUR ---
PATIENT RESTING IN BED AT THIS TIME. SIDERAILS ARE UP X2 CALL LIGHT IS WITHIN REACH.
--- NOTE | 2020-09-22 13:07 | NUR ---
S: JOE ACUÑA is a 79 M who presents with UTI. He has a history of coronary artery disease, lung cancer, atrial fibrillation, COPD, chronic anemia, and hypertension. All medications in patient's chart were reviewed. O: VS: BP 134/82 mmHg, P 82 bpm, RR 20 bpm,T 97 F W 58.003 kg, HT 69 in, Scr= 0.8 (1) mg/dl,CrCl= 47.5 ml/min A: Blood culture is pending. Urine culture is pending. P: Patient is on ceftriaxone 1 g IV Q24H. Vancomycin ordered for pharmacy to dose. Start Vancomycin 1 g IV Q24H. Vancomycin trough is drawn before the 4th dose on 09/25/20 @ 09:30. Vancomycin goal trough is between 10-15 mcg/ml. Pharmacy will follow and or advise on antibiotics use as needed.
[2020-09-22 14:35] VITALS: BP 133/73
--- NOTE | 2020-09-22 16:18 | NUR ---
PATIENT LAYING IN BED AT THIS TIME. PATIENT WATCHING TV DENIES ANY PAIN SIDERAILS ARE UP X 2 BED ALARM IS ENGAGED. CALL LIGHT AND PERSONAL ITEMS ARE WITHIN REACH.
--- NOTE | 2020-09-22 19:00 | NUR ---
REPORT RECEIVED FROM Marcelina BACK RN. CARE OF PT ASSUMED AT THIS TIME.
[2020-09-22 19:11] VITALS: BP 116/70
--- NOTE | 2020-09-22 20:58 | NUR ---
PHYSICAL ASSESMENT COMPLETE. SCHEDULED MEDICATIONS ADMINISTERED. PLAN OF CARE REVIEWED, PT VERBALIZES UNDERSTANDING. PT DENIES NEEDS AT THIS TIME. CALL SABILLON WITHIN REACH, AGREES TO CALL PRN. BED LOCKED IN LOW POSITION WITH BEDRAILS UP X2 AND BED ALARM ON.
[2020-09-23 00:08] VITALS: BP 131/72
--- NOTE | 2020-09-23 00:20 | NUR ---
PT LAYING IN BED WITH EYES CLOSED, NO APPARENT DISTRESS, RESPIRATIONS REGULAR AND UNLABORED. APPEARS TO BE SLEEPING COMFORTABLY. CALL SABILLON REMAINS WITHIN REACH.
[2020-09-23 04:05] VITALS: BP 137/78
--- NOTE | 2020-09-23 04:21 | NUR ---
VIJAY, SURFACER OPERATOR IN ROOM TO DRAW AM LABS.
[2020-09-23 06:39] LABS: HEMATOCRIT 29.5 % (39.0-50.0); HEMOGLOBIN 9.5 g/dl (14.0-18.0); MEAN CELL VOLUME 94.2 fL CALC (80.0-100.0); MEAN CORPUSCULAR HGB 30.4 pG CALC (26.0-32.0); MEAN CORPUSCULAR HGB CONC 32.2 g/dL CAL (32.0-36.0); RED BLOOD COUNT 3.13 mill/uL (4.70-6.10); RED CELL DISTRI WIDTH 14.6 % (11.5-15.5)
[2020-09-23 07:17] LABS: ANION GAP 12 (6-22 (CALC)); BUN 11 mg/dL (8-23); BUN/CREATININE RATIO 19 (12-20 (CALC)); CARBON DIOXIDE 24 mmol/l (22-30); CHLORIDE 97 mmol/l (95-108); CREATININE 0.6 mg/dL (0.7-1.3); GFR > 60 ML/MIN (>=60 (CALC)); GFR FOR AFR.AMER. > 60 ML/MIN (>=60 (CALC)); MAGNESIUM 1.6 mg/dL (1.6-2.3); POTASSIUM 3.5 mmol/l (3.5-5.1); SODIUM 130 mmol/l (137-146)
[2020-09-23 07:21] VITALS: BP 155/90
[2020-09-23] MEDS ORDERED: CEFDINIR300 MG PO (09:16)
--- NOTE | 2020-09-23 10:36 | NUR ---
PT SEEN AT REST IN THE BED, APPEARS WITHDRAWN, LUNGS CLEAR, RA. PT SEEN BY DR DOE THIS MORNING, WILL DISCHARGE LATER TODAY. CALLED EARLIER FOR AN UPDATE, BUT UNABLE TO CONTACT HER IN RETURN PHONE CALL PER VOICE MAILBOX NOT BEING SET UP AND CALL NOT GOING THROUGH.
[2020-09-23 11:07] VITALS: BP 133/72
--- NOTE | 2020-09-23 13:47 | NUR ---
PT HAS BEEN DISCHARGED TO HOME. HAD ARRIVED FOR VISITING HOURS AND WAS AT BEDSIDE TO RECEIVE DC INSTRUCTIONS. PT PROVIDED GOWN. IV REMOVED. TELE REMOVED. VERBALIZES UNDERSTANDING OF DC INSTRUCTIONS, PT TAKEN BY WHEELCHAIR TO VEHICLE. PT LEAVES [facility] IN STABLE CONDITION. TAKES WITH HER PT'S [facility] MEDS.
== END 2020-09-23 13:45 ==
LOC: ED 20:02 → ED-I 09-22 00:19 → ED 09-22 00:29 → MS2 09-22 00:30
PROVIDERS: Emergency Medicine; Nurse Practitioner; ADMIT Internal Medicine; ATTEND Internal Medicine
DX: N39.0 Urinary tract infection, site not specified (principal); E86.0 Dehydration; I10 Essential (primary) hypertension; J44.9 Chronic obstructive pulmonary disease, unspecified; I48.91 Unspecified atrial fibrillation; E87.1 Hypo-osmolality and hyponatremia; R79.89 Other specified abnormal findings of blood chemistry; R53.1 Weakness; I25.10 Atherosclerotic heart disease of native coronary artery without angina pectoris; B96.20 Unspecified Escherichia coli [E. coli] as the cause of diseases classified elsewhere; Z88.2 Allergy status to sulfonamides; Z85.118 Personal history of other malignant neoplasm of bronchus and lung; Z87.891 Personal history of nicotine dependence; Z79.01 Long term (current) use of anticoagulants; Z20.822 Contact with and (suspected) exposure to COVID-19
CPT/HCPCS: G0378

== ENCOUNTER 2020-09-26 10:36 | Observation (INO) | payer MEDICARE, MEDICAID ==
[~2020-09-26] VITALS: Ht 175.3 cm; Wt 59.6 kg
[~2020-09-26 10:36] MED LIST changes: +CEFDINIR300 MG PO
--- NOTE | 2020-09-26 11:08 | NUR ---
W/C TO THE ROOM, STAND PIVOT
[2020-09-26 11:29] LABS: HEMATOCRIT 29.2 % (39.0-50.0); HEMOGLOBIN 9.6 g/dl (14.0-18.0); IMMATURE GRANULOCYTES 0.2 % (0.0-5.0); MEAN CELL VOLUME 92.4 fL CALC (80.0-100.0); MEAN CORPUSCULAR HGB 30.4 pG CALC (26.0-32.0); MEAN CORPUSCULAR HGB CONC 32.9 g/dL CAL (32.0-36.0); NEUT# 3.51 thou/uL (1.82-7.42); RED BLOOD COUNT 3.16 mill/uL (4.70-6.10); RED CELL DISTRI WIDTH 14.4 % (11.5-15.5)
[2020-09-26] MEDS ORDERED: D-MANNOSE500 MG (11:31)
[2020-09-26 12:01] LABS: ALBUMIN 3.8 g/dL (3.2-5.0); ALKALINE PHOSPHATASE 133 u/l (38-126); ANION GAP 11 (6-22 (CALC)); BILIRUBIN, TOTAL 0.6 mg/dL (0.0-1.4); BUN 7 mg/dL (8-23); BUN/CREATININE RATIO 13 (12-20 (CALC)); CARBON DIOXIDE 27 mmol/l (22-30); CHLORIDE 93 mmol/l (95-108); CREATININE 0.6 mg/dL (0.7-1.3); GFR > 60 ML/MIN (>=60 (CALC)); GFR FOR AFR.AMER. > 60 ML/MIN (>=60 (CALC)); POTASSIUM 3.3 mmol/l (3.5-5.1); SGOT/AST 42 u/l (19-48); SODIUM 127 mmol/l (137-146); TOTAL PROTEIN 7.3 g/dL (6.3-8.2)
--- NOTE | 2020-09-26 12:05 | NUR ---
IMPROVED RESPIRATORY EFFORT, DECREASED AUDIBLE WHEEZING NOTED, LEFT TO GO TO AN APPOINTMENT, NOTIFIED PROVIDER OF RESPIRATORY EFFORT
--- NOTE | 2020-09-26 13:15 | NUR ---
RESTING IN ROOM, ALERT
--- NOTE | 2020-09-26 13:41 | NUR ---
PROVIDER UPDATED PLAN WITH PATIENT AT THIS TIME, IMPROVED RESP EFFORT AT THIST THIS TIME, NO AUDIBLE WHEEZING PRESENT
--- NOTE | 2020-09-26 14:48 | NUR ---
RESTING IN BED, ALERT BREATHING PATTERN IMPROVED, SLEEPING ON AND OFF
--- NOTE | 2020-09-26 15:34 | NUR ---
VOIDED LARGE AMOUNT OF INCONTIN. URINE, BED LINENS SOAKED AND ABLE TO MEASURE 600 ML REPORT GIVEN TO MED/SURG DENIES QUESTIONS, TRANSPORTED VIA W/C
[2020-09-26 15:40] VITALS: BP 153/90
--- NOTE | 2020-09-26 15:45 | NUR ---
PT ARRIVED FROM ER VIA WC WITH STAFF. 2 PERSON ASSIST. AND SHUFFLES. WHEN HE STANDS/.
--- NOTE | 2020-09-26 16:00 | NUR ---
SPOKE WITH PT'S AND ABLE TO GET ANSWERS FOR THE ADMISSION. WILL BRING IN OTHER MEDICATION. PHYSICAL ASSESSMENT : BREATH SOUNDS ARE CLEAR, WITH EXPIRATORY WHEEZING NOTED. HR IS REG,PULSES ARE STRONG X4, ABD IS SOFT WITH ACTIVE BS. TELE MONITOR IN PLACE.
[2020-09-26 16:30] LABS: URINE BILIRUBIN - DIPSTICK NEGATIVE (NEGATIVE); URINE BLOOD DIPSTICK TRACE-INTACT (NEGATIVE); URINE COLOR YELLOW; URINE GLUCOSE - DIPSTICK NEGATIVE (NEGATIVE); URINE KETONE NEGATIVE (NEGATIVE); URINE PROTEIN - DIPSTICK NEGATIVE (NEG-TRACE); URINE SPECIFIC GRAVITY 1.025; URINE UROBILINOGEN - DIPSTICK 0.2 E.U./dL (0.2)
[2020-09-26 16:32] LABS: URINE LEUK ESTERASE LARGE (NEGATIVE); URINE NITRITE - DIPSTICK NEGATIVE (Negative)
--- NOTE | 2020-09-26 18:16 | NUR ---
SPOKE WITH SPOUSE WILL BRING HIS MEDICATION TOMORROW.
[2020-09-26 19:00] VITALS: BP 145/87
--- NOTE | 2020-09-26 20:45 | NUR ---
UPON ARRIVAL TO THE FLOOR AND COMPLATING ASSESSMENT WITH PT NOTED THAT PT AND HIS BED WERE SOAKED WITH URINE. ASSIGNED PARTITION ASSEMBLER ASSISTED WITH CLEANING PT AND CHANGING LINENS. PT WAS WEARING A LARGE BRIEF, SUSPECT BRIEF LEAKED D/T SIZE. ASSISTED PT WITH EATING FAUZIA OF HIS SUPPER, HE ONLY ATE ABOUT 10% OF HIS FOOD. PT IS ABLE TO TAKE PILLS WHOLE. PT COUGHS ON THIN LIQUIDS, WILL DISCUSS WITH ONCOMING SHIFT ABOUT GETTING A SPEECH EVALUATION. BREATHING IS EVEN AND UNLABORED. COUGH NOTED, NON-PRODUCTIVE BUT WET SOUNDING. WHEEZING NOTED SCATTERED THROUGHOUT ALL BUT LEFT LOWER LOBE THAT WAS EXCISED D/T CANCER. ASSESSMENT COMPLETED, PLEASE SEE DOCUMENTATION. SAFETY PRECAUTIONS IN PLACE, BED IN LOWEST POSITION, CALL LIGHT WITHIN REACH, BED ALARM ON. WILL MONITOR
[2020-09-27] VITALS: BP 126/78
--- NOTE | 2020-09-27 00:45 | NUR ---
PT RESTING QUIETLY IN BED WITH HIS EYES CLOSED. NO COMPLAINTS VOICED AT THIS TIME. BED ALARM REMAINS IN PLACE. SAFETY PRECAUTIONS ARE ALL IN PLACE. WILL MONITOR
[2020-09-27 04:00] VITALS: BP 140/91
--- NOTE | 2020-09-27 04:00 | NUR ---
PT RESTING COMFORTABLY IN BED WITH EYES CLOSED. NO CONCERNS VOICED AT THIS TIME. BREATHING EVEN AND UNLABORED. NON-PRODUCTIVE, WET SOUNDING COUGH CONTINUES. DOES NOT SEEM TO BOTHER PATIENT OR OCCLUDE HIS AIRWAY. SAFETY PRECAUTIONS IN PLACE, BED ALRAM ON, BED IN LOWEST POSITON, AND CALL LIGHT WITHIN REACH.
[2020-09-27 05:37] LABS: HEMATOCRIT 29.4 % (39.0-50.0); HEMOGLOBIN 9.7 g/dl (14.0-18.0); MEAN CELL VOLUME 91.3 fL CALC (80.0-100.0); MEAN CORPUSCULAR HGB 30.1 pG CALC (26.0-32.0); RED BLOOD COUNT 3.22 mill/uL (4.70-6.10); RED CELL DISTRI WIDTH 14.3 % (11.5-15.5)
[2020-09-27 06:04] LABS: ANION GAP 12 (6-22 (CALC)); BUN 14 mg/dL (8-23); BUN/CREATININE RATIO 18 (12-20 (CALC)); CALCULATED LDLCHOLESTEROL 66 mg/dL (62-129 (CALC)); CARBON DIOXIDE 28 mmol/l (22-30); CHLORIDE 94 mmol/l (95-108); CHOLESTEROL HDL RATIO 2.5 (<4.4 (CALC)); CREATININE 0.8 mg/dL (0.7-1.3); GFR > 60 ML/MIN (>=60 (CALC)); GFR FOR AFR.AMER. > 60 ML/MIN (>=60 (CALC)); HDL CHOLESTEROL 51 mg/dL (>=40); MAGNESIUM 1.7 mg/dL (1.6-2.3); POTASSIUM 3.3 mmol/l (3.5-5.1); SODIUM 131 mmol/l (137-146); TOTAL CHOLESTEROL 125 mg/dl (0-199); TOTAL TRIGLYCERIDES 41 mg/dl (30-149); VLDL CHOLESTROL 8 mg/dl (0-38 (CALC))
--- NOTE | 2020-09-27 07:35 | NUR ---
ASSESSMENT IS COMPLETED: IV SITE IS FREE FROM REDNESS OR EDEMA. HR IS REG,PULSES ARE STRONG X4, ABD IS SOFT WITH ACTIVE BS BREATH SOUNDS ARE CLEAR, WITH EXPIRATORY WHEEZING NOTED. O2 @ 2LITERS WITH NC. TELE MONTIOR IN PLACE.
[2020-09-27 07:55] VITALS: BP 141/87
--- NOTE | 2020-09-27 09:25 | NUR ---
PER BIRD TENDER PT DID HAVE A BM THIS AM.
--- NOTE | 2020-09-27 11:15 | NUR ---
SWALLOW STUDY IN TO VISIT WITH PT RECOMMENDING : PUREED AND NECTAR THICKENED LIQUIDS. PT ALSO IN TO VISIT WITH PT. VERY SLUGGISH.
--- NOTE | 2020-09-27 12:00 | NUR ---
PT IS RELAXING IN BED WITH NO DISTRESS NOTED.
--- NOTE | 2020-09-27 13:32 | NUR ---
PT'S HERE TO BRING MEDICATION AND TALK WITH CASE MANAGEMENT RE: PLACEMENT FOR PT.
[2020-09-27] MEDS ORDERED: CEFDINIR300 MG PO (14:30)
[2020-09-27] MEDS ORDERED: PREDNISONE20 MG PO (14:32)
[2020-09-27] MEDS ORDERED: LASIX 20 MG TAB20 MG PO (14:32)
[2020-09-27] MEDS ORDERED: POTASSIUM CHLO10 MEQ PO (14:36)
--- NOTE | 2020-09-27 14:47 | NUR ---
SPOUSE IS GOING TO GO HOME AND WILL INFORM OF WHEN THEY WILL YARN TESTER. CASE MANAGEMENT EXPLAINED THAT IT WILL BE 2 WEEKS BEFORE PT CAN HAVE VISITORS. PERMISSION WAS GRANTED BY CASE MANAGEMENT TO STAY A LITTLE LONGER.
[2020-09-27 15:05] VITALS: BP 125/74
--- NOTE | 2020-09-27 17:28 | NUR ---
SPOKE WITH HAR[facility]KE[facility] AT [facility]. PT IS BEING TRANSPORTED BY [facility]. IV SITE DISCONITNUED CATHETER INTACT, NO REDNESS OR EDEMA. TELE MONITOR TAKEN OFF. DISCHARGE INSTRUCTIONS GIVEN AND SENT WITH THE CEMENT [facility] .
--- NOTE | 2020-09-27 17:38 | NUR ---
Discharge instructions given. Patient verbalizes understanding of same. Discharged in stable condition via Medical Transport to *Other with *Other. All belongings sent with pt.
--- NOTE | 2020-09-27 17:40 | NUR ---
SPOKE WITH ALEJANDRINA (DAUGHTER) TO INFORM THAT [facility] WAS PICK[facility].
--- NOTE | 2020-09-28 07:52 | NUR ---
PRELIM BLOOD CX RESULTS SHOW GRAM POSITIVE COCCI IN 1 OF 4 VIALS. REPORTED TO JAY, WILL F/U WITH FINAL
--- NOTE | 2020-10-02 08:56 | NUR ---
FINAL BLOOD CX RESULTS REPORTED TO DR MÉNDEZ AND FAXED TO [address] NURSE [phone]
== END 2020-09-27 17:26 ==
LOC: ED 10:36 → ED-I 13:30 → ED 14:17 → MS2 14:18
PROVIDERS: Family Medicine; Nurse Practitioner; ADMIT Internal Medicine; ATTEND Internal Medicine
DX: I11.0 Hypertensive heart disease with heart failure (principal); I50.9 Heart failure, unspecified; J44.9 Chronic obstructive pulmonary disease, unspecified; E87.1 Hypo-osmolality and hyponatremia; E87.6 Hypokalemia; N39.0 Urinary tract infection, site not specified; R53.1 Weakness; I48.91 Unspecified atrial fibrillation; I25.10 Atherosclerotic heart disease of native coronary artery without angina pectoris; Z85.118 Personal history of other malignant neoplasm of bronchus and lung; Z90.2 Acquired absence of lung [part of]; Z87.891 Personal history of nicotine dependence; Z20.822 Contact with and (suspected) exposure to COVID-19
CPT/HCPCS: G0378; Q9967